=== PATIENT | female | born 1955 | race Caucasian/White ===

== ENCOUNTER → 2018-07-10 | Outpatient (CLI) | payer OTHER ==
[~2018-07-10] VITALS: Ht 162.6 cm; Wt 70.3 kg
[~2018-07-10] MED LIST: ADVAIR 250-501 EACH INH; AMBIEN 5 MG TABL5 M1 PO; ARIMIDEX PO; ATORVASTATIN CA40 MG PO; BENADRYL25 MG PO; BONIVA150 MG PO; CALCIUM 600 +1 EAC1 PO; CELEXA20 MG PO; CITRACAL + D E1 EACH PO; DIAZEPAM 5 MG5 M1 PO; DIPHENHIST50 MG PO; FIORINAL 50-321 EACH PO; FISH OIL + VIT1 EACH PO; FISH OIL 1,0001 EAC5 PO; FLONASE 0.05%50 MCG INH; FLOVENT HFA 4444 MCG INH; HYDROCHLOROTHIA25 M2 PO; HYDROCODONE-AP1 EA11 PO; IPRAT-ALBUT 0.5-3 ML INH; LEXAPRO20 MG PO; LIPITOR 20 MG T20 M1 PO; LORTAB 5 MG/5001 TA1 PO; MAGNESIUM400 MG PO; MIRALAX255 GM PO; ORPHENADRINE C100 M2 PO; PERCOCET 5-3251 EACH PO; PREDNISONE 5 MG5 MG PO; PREVACID15 MG PO; PRILOSEC 20 MG20 MG PO; PROMETHAZINE-C120 ML PO; PROMETHAZINE/C118 ML PO; PROTONIX40 M1 PO; QVAR REDIHALE10.6 G1 INH; SIMVASTATIN40 MG PO; TESSALON PERLE100 MG PO; TOPROL XL200 MG PO; TRAMADOL 50 MG50 MG PO; TYLENOL EXTRA500 MG PO; VENTOLIN HFA 1818 GM INH; VITAMIN B-6200 M1 PO; VITAMIN D1000 UNI1 PO; VITAMIN D1000 UNI2 PO; VITAMIN D35000 UNI1 PO; XOPENEX0.63 MG/3 INH
--- NOTE | 2018-07-13 09:50 | P ---
[facility] [place] [address] PROCEDURE REPORT Name: JALEELRENETTA RONDONGH ANN Room #: REG HANY Harp#: [id number] Admission: 07/10/18 Attend Phys: Sravan Jarrell Discharge: Date of : 51 Report #: [id number] THIS REPORT FOR: //name// CC: Sravan Carcamo MD DATE OF SERVICE: 07/10/2018 PROCEDURE PERFORMED: Colonoscopy with biopsies. HISTORY OF PRESENT ILLNESS: The patient is a 62-year-old female with a history of colon polyps, here for routine followup. She also has a family history of colon cancer in her grandmother. She does report a small amount of bright red blood per rectum at times over the last month. No recent bleeding. DESCRIPTION OF PROCEDURE: The risks and benefits of the procedure were explained to the patient, those risks including but not limited to bleeding, perforation and the risk of sedation. She understood these risks and gave informed consent. Sedation was given using propofol per anesthesia. Next, a digital rectal exam was initially performed, which was normal. Next, using a standard Olympus colonoscope, the scope was placed in the patient's anus and advanced under direct vision to the cecum. The overall prep was excellent. The cecum and ileocecal valve were normal in appearance. Ascending, transverse and descending colon were normal. A few small scattered diverticula were noted in the sigmoid colon, no evidence of inflammation or bleeding, otherwise normal. In the rectum, there was a 3 mm sessile polyp. This was removed with cold forceps. On retroflexion, small nonbleeding internal hemorrhoids were noted. The scope was then withdrawn and the procedure terminated. The patient tolerated the procedure well. IMPRESSION: 1. Sigmoid diverticulosis. 2. Small rectal polyp. 3. Small internal hemorrhoids, likely source of recent intermittent bright red blood per rectum. No evidence of bleeding at this time. RECOMMENDATIONS: 1. Await biopsy results. 2. Repeat colonoscopy in 5 years. 3. Recommend high fiber diet and Analpram p.r.n. [facility] [address] [place] [address] PROCEDURE REPORT Name: SHANNON MCKENNA ANN Room #: REG HANY Harp#: [id number] Admission: 07/10/18 Attend Phys: Sravan Jarrell Discharge: Date of : 51 Report #: [id number] Thank you for allowing me to participate in her care. <ELECTRONICALLY SIGNED> By: Sravan Stevenson MD 07/13/18 [id number] Sravan Stevenson MD /nt
== END | disposition home or self-care (01) ==
LOC: GI 06-05 15:20
DX: K62.1 Rectal polyp (principal); K57.30 Diverticulosis of large intestine without perforation or abscess without bleeding; K64.8 Other hemorrhoids; Z80.0 Family history of malignant neoplasm of digestive organs; Z86.010 Personal history of colon polyps; E78.00 Pure hypercholesterolemia, unspecified; I10 Essential (primary) hypertension; K21.9 Gastro-esophageal reflux disease without esophagitis; F32.9 Major depressive disorder, single episode, unspecified; J45.909 Unspecified asthma, uncomplicated; Z90.710 Acquired absence of both cervix and uterus; Z98.890 Other specified postprocedural states; Z90.49 Acquired absence of other specified parts of digestive tract; Z79.899 Other long term (current) drug therapy; Z87.19 Personal history of other diseases of the digestive system; Z91.041 Radiographic dye allergy status; Z88.8 Allergy status to other drugs, medicaments and biological substances
CPT/HCPCS: 62110; 62900

== ENCOUNTER → 2018-08-18 | Outpatient (CLI) | payer OTHER | LOC: CAT 09:21 | DX: Z13.6 Encounter for screening for cardiovascular disorders (principal); E78.00 Pure hypercholesterolemia, unspecified; I25.10 Atherosclerotic heart disease of native coronary artery without angina pectoris ==